=== PATIENT | female | born 2000 | race Caucasian/White ===

== ENCOUNTER 2019-09-02 20:50 | Emergency (ER) | payer OTHER ==
[~2019-09-02] VITALS: Ht 167.6 cm; Wt 45.5 kg
[2019-09-02 21:01] VITALS: Ht 167.6 cm; Wt 45.5 kg
[2019-09-02 22:06] LABS: microscopic required? NO
[2019-09-02 22:13] LABS: UA SPECIFIC GRAVITY <=1.005 (1.005-1.035); urine erythrocyte NEGATIVE (NEGATIVE)
[2019-09-02 22:30] LABS: AMPHETAMINE QUAL UR NONE DETECTED (See below)
[2019-09-02 22:44] LABS: BASOPHIL % 0.4 % (0-2); PLATELET COUNT 271 x10^3mcL (130-400); RED CELL DISTRIBUTION WIDTH 13.3 % (11.5-14.5)
[2019-09-02 22:54] LABS: CARBON DIOXIDE 28.3 mmol/L (21-32); CHLORIDE SERUM 103 mmol/L (98-107); CREATININE SERUM 0.9 mg/dL (0.6-1.0); GFR1 > 60 mL/min; GLUCOSE SERUM 98 mg/dL (74-106); POTASSIUM SERUM 3.4 mmol/L (3.5-5.1); SODIUM SERUM 139 mmol/L (136-145)
[2019-09-02 22:58] LABS: ALBUMIN 4.3 g/dL (3.4-5.0); ALKALINE PHOSPHATASE 45 U/L (46-116); ALT/SGPT 20 U/L (14-59); AST/SGOT 4 U/L (15-37); BILIRUBIN TOTAL 1.11 mg/dL (0.20-1.00); LIPASE 84 IU/L (73-393); TOTAL PROTEIN, SERUM 7.4 g/dL (6.4-8.2)
[2019-09-02 23:22] VITALS: BP 127/86
== END 2019-09-02 23:22 | disposition home or self-care (01) ==
LOC: ED 20:50
PROVIDERS: Emergency Medicine
DX: G47.00 Insomnia, unspecified (principal); R10.13 Epigastric pain